=== PATIENT | male | born 1960 | race Caucasian/White ===

== ENCOUNTER 2016-08-18 18:48 | Emergency (ER) | payer OTHER ==
[~2016-08-18] VITALS: Ht 182.9 cm; Wt 93.0 kg
[~2016-08-18 18:48] MED LIST: FLEXERIL10 MG PO; NEXIUM 40MG40 MG PO
[2016-08-18 18:58] VITALS: BP 149/86
--- NOTE | 2016-08-18 19:15 | ED EYE COMPLAINT ---
History of Present Illness General Chief Complaint: Eye Problems Stated Complaint: LEFT EYE PAIN, POKED IN EYE WITH A STICK Source: patient, old records Exam Limitations: no limitations Vital Signs & Intake/Output Vital Signs & Intake/Output Vital Signs Date Time Temp Pulse Resp B/P B/P Pulse O2 O2 Flow FiO2 Mean Ox Delivery Rate 08/18 1858 98.2 75 15 149/86 94 Room Air Room Air Allergies Coded Allergies: NO KNOWN ALLERGIES (06/26/14) Reconcile Medications CYCLOBENZAPRINE HCL (Flexeril) 10 MG TABLET 1 TAB PO QHS PRN MUSCLE SPASM Esomeprazole (Nexium) 40 MG CAPSULE.DR 1 CAP PO PRN GERD (Reported) Ketorolac Tromethamine (Acular) 0.5 % DROPS 1 GTT OPH 4 TIMES/DAY corneal abrasion Polytrim (Polytrim Eye Drops) 10,000 UNIT-1 MG/ML DROPS 1 GTT OPH Q6 corneal abrasion Triage Note: PT TO ED FOR C/C OF LEFT EYE PAIN S/P BEIGN POKED IN EYE WITH A STICK DOING YARD WORK EARLIER TODAY. DENIES CHANGE IN VISION. EYE HAS BEEN TEARING, BUT NO DRAINAGE. LAST TETANUS UNKNOWN. Triage Nurses Notes Reviewed? yes Onset: Abrupt Duration: hour(s): (2), constant Timing: recent history Injury Environment: home Severity: mild, moderate Severity Numbers: 5 No Modifying Factors: none Left Eye Associated Symptoms: burning Right Eye Associated Symptoms: DENEIS HPI: 55-year-old male presents to ER for evaluation complaining of left eye pain after he states he spoke in the eye by a branch while doing yardwork earlier this afternoon. He denies any vision loss or vision changes however states his eyes been burning aching sharp pain. He has not taken anything he was not wearing glasses at the time he denies contact lens use. He denies any facial swelling or other trauma no right eye symptoms no modifying factors or associated symptoms otherwise. (KRIS PATRICIA,ATUL) Past History Travel History Traveled to [place] past 21 day No Medical History Any Pertinent Medical History? see below for history Neurological: NONE EENT: NONE Cardiovascular: NONE Respiratory: NONE Gastrointestinal: GERD Hepatic: NONE Renal: NONE Musculoskeletal: NONE Psychiatric: NONE Endocrine: NONE Blood Disorders: NONE Cancer(s): NONE SENIOR JAVA UI DEVELOPER/Reproductive: NONE Surgical History Surgical History: none Psychosocial History What is your primary language Montenegrin Tobacco Use: Never used ETOH Use: occasional use Illicit Drug Use: denies illicit drug use Family History Hx Contributory? No (ATUL BOBO) Review of Systems Review of Systems Constitutional: Reports: see HPI. All Other Systems: Reviewed and Negative Comments Review of systems: See HPI, All other systems negative. Constitutional, no chills no fever, no malaise HEENT: No visual changes no sore throat no congestion Cardiovascular: No chest pain , no palpitation Skin: no rashes, no change in skin Respiratory: No dyspnea no cough no sputum GI: No nausea no vomiting, no diarrhea, : No dysuria Muscle skeletal: No joint pain, no back pain, no neck pain, Neurologic: No numbness no headache Psych: No stress Heme/endocrine: No bruising Immunology: No lymphadenopathy (ATUL BOBO) Physical Exam General Appearance: well developed/nourished, no apparent distress General Inspection: normal inspection Eyelid: normal inspection Conjunctiva/Sclera: normal inspection Cornea: abrasion EOM: intact Pupil: normal accommodation, normal pupil, PERRL General Inspection: normal inspection Eyelid: normal inspection Conjunctiva/Sclera: normal inspection Cornea: normal inspection EOM: intact Pupil: normal accommodation, normal pupil, PERRL Physical Exam Comments: Well-developed well-nourished patient in no apparent distress. HEENT: Atraumatic, extraocular motion intact Neck: Supple, FROM Back: FROM Cardiovascular: Regular rate and rhythms no murmurs Respiratory: No respiratory distress. Patient speaking in full complete sentences. Breath sounds clear to auscultation bilaterally: NO W/R/R Extremities: full range of motion Neuro: awake, alert, and oriented to person, place and time. There were no obvious focal neurologic abnormalities. Skin: Warm & dry;No appreciable rash on exposed skin Psych: Mood affect normal, normal memory normal judgment. (ATUL BOBO) Progress Differential Diagnosis: corneal abrasion, corneal foreign body, conjunctivitis, detached retina Plan of Care: Tetracaine drops were instilled to anesthetize the eye under fluoroscopy seen corneal abrasion was noted a Q-tip was run under both the upper and lower eyelids. I discussed the patient possibly for binocular examination still exist follow-up with process helper tomorrow Acular Polytrim eyedrops provided answered all their questions initial comfortable plan (ATUL BOBO) Departure Departure Time of Disposition: 1932 Disposition: HOME OR SELF CARE Condition: Stable Clinical Impression Primary Impression: Corneal abrasion Referrals: PATIENT HAS NO PRIMARY CARE DR (PCP/Family) MACARENA HOOKS,DIXON Young Additional Instructions: FOLLOW UP WITH MULTIPLE SPINDLE ROUTER OPERATOR DR FIORE THIS WEEK. DISCUSSED THE POSSIBILTY OF A FOREIGN BODY NOT SEEN ON EXAMINATION ACULAR AND POLYTRIM EYE DROPS DIRECTED. RETURN WITH ANY CONCERNS THESE WERE SENT TO [facility] Departure Forms: Customer Survey General Discharge Information Prescriptions: Current Visit Scripts Polytrim (Polytrim Eye Drops) 1 GTT OPH Q6 #10 ML Ketorolac Tromethamine (Acular) 1 GTT OPH 4 TIMES/DAY #5 ML (ATUL BOBO) PA/BAKER Co-Sign Statement Statement: ED Attending supervision documentation- [] I saw and evaluated the patient. I have also reviewed all the pertinent lab results and diagnostic results. I agree with the findings and the plan of care as documented in the PA's/BAKER's documentation. [x] I have reviewed the ED Record and agree with the PA's/BAKER's documentation. [] Additions or exceptions (if any) to the PAs/BAKER's note and plan are summarized below: [] (ZEFERINO HOOKS,JACEK Garnica)
[2016-08-18] MEDS ORDERED: ACULAR5 ML OPH (19:35)
[2016-08-18] MEDS ORDERED: POLYTRIM EYE DR10 ML OPH (19:35)
== END 2016-08-18 19:49 ==
LOC: ERH 18:48
DX: S05.02XA Injury of conjunctiva and corneal abrasion without foreign body, left eye, initial encounter (principal); W22.8XXA Striking against or struck by other objects, initial encounter; Y93.H9 Activity, other involving exterior property and land maintenance, building and construction; Y92.9 Unspecified place or not applicable